=== PATIENT | male | born 1950 | race Caucasian/White ===

== ENCOUNTER 2018-06-10 22:33 | Emergency (ER) | payer MEDICARE, BC ==
--- NOTE | 2018-06-10 22:50 | EDM.PDOC ---
ED HPI GENERAL MEDICAL PROBLEM - General Chief Complaint: Lower Extremity Injury/Pain Stated Complaint: PAIN Time Seen by Provider: 06/10/18 22:40 Source of Information: Reports: Patient, Family History Limitations: Reports: No Limitations - History of Present Illness INITIAL COMMENTS - FREE TEXT/NARRATIVE: Harjeet comes into [facility] ED with inability to empty the bladder since this afternoon. He underwent lithotripsy for a L ureteral stone 4 days ago at [facility], and seemed to be doing well until today. He noticed voiding appeared to be in progressively smaller amounts, without burning, hematuria, or back pain. He called the nurse this evening who suggested a visit to the ED. Upon arrival, VSS, and a bladder scan noted 56 ml of urine. - Related Data Allergies Allergy/AdvReac Type Severity Reaction Status Date / Time No Known Allergies Allergy Verified 06/10/18 22:58 Home Meds: Home Meds Aspirin [Halfprin] 81 mg PO DAILY 11/11/16 [History] Metoprolol Succinate [Toprol XL] 12.5 mg PO DAILY 11/11/16 [History] Nitroglycerin [Nitrostat] 0.4 mg SL ASDIRECTED PRN 11/11/16 [History] atorvaSTATin [Lipitor] 40 mg PO BEDTIME 11/11/16 [History] Ketorolac [Toradol] 10 mg PO Q6H PRN 06/10/18 [History] Nitroglycerin 0.4 mg SL ASDIRECTED 06/10/18 [History] Tamsulosin HCl [Flomax] 0.4 mg PO DAILY 06/10/18 [History] valACYclovir [Valtrex] 1,000 mg PO DAILY PRN 06/10/18 [History] Past Medical History HEENT History: Reports: Impaired Vision Other HEENT History: posterior vitreous detaCHMENT Cardiovascular History: Reports: CAD, High Cholesterol, Hypertension, AL, Stents Respiratory History: Reports: Bronchitis, Recurrent, Pneumonia, Recurrent, SOB Musculoskeletal History: Reports: Amputation Oncologic (Cancer) History: Reports: Basal Cell Carcinoma Dermatologic History: Reports: Other (See Below) Other Dermatologic History: KERATOSIS - Infectious Disease History Infectious Disease History: Reports: Chicken Pox, Measles, Mumps, Shingles - Past Surgical History HEENT Surgical History: Reports: Oral Surgery Cardiovascular Surgical History: Reports: Coronary Artery Stent Social & Family History - Caffeine Use Caffeine Use: Reports: Coffee Other Caffeine Use: 2 CUPS COFFEE EACH DAY Review of Systems - Review of Systems Review Of Systems: ROS reveals no pertinent complaints other than HPI. ED EXAM, GENERAL - Physical Exam Exam: See Below Exam Limited By: No Limitations General Appearance: Alert, WD/WN, No Apparent Distress, Anxious Head: Normocephalic Neck: Normal Inspection, Supple Respiratory/Chest: Lungs Clear, Normal Breath Sounds Cardiovascular: Regular Rate, Rhythm, No Murmur GI/Abdominal: Normal Bowel Sounds, Soft, Non-Tender, No Organomegaly, No Distention, No Mass (Male) Exam: No Hernia, Normal Inspection Rectal (Males) Exam: Deferred Back Exam: Normal Inspection Extremities: Normal Inspection Neurological: Alert, Oriented, CN II-XII Intact, Normal Cognition, Normal Gait, No Motor/Sensory Deficits Psychiatric: Normal Affect, Anxious Skin Exam: Warm, Dry Lymphatic: No Adenopathy Course - Vital Signs Text/Narrative:: A screening UA was satisfactory. No meds were dispensed. - Orders/Labs/Meds Orders: Active Orders 24 hr Category Date Time Status URINALYSIS W/MICROSCOPIC [UA W/MICROSCOPIC] [URIN] Stat Lab 06/10/18 23:04 Ordered Labs: Laboratory Tests 06/10/18 Range/Units 23:04 Urine Color Yellow (YELLOW) Urine Appearance Slightly cloudy (CLEAR) Urine pH 0.0 L (5.0-6.5) Ur Specific [place] 1.025 (1.010-1.025) Urine Protein Negative (NEGATIVE) mg/dL Urine Glucose (UA) Normal (NEGATIVE) mg/dL Urine Ketones Negative (NEGATIVE) mg/dL Urine Occult Blood Large H (NEGATIVE) Urine Nitrite Negative (NEGATIVE) Urine Bilirubin Negative (NEGATIVE) Urine Urobilinogen Normal (NEGATIVE) mg/dL Ur Leukocyte Esterase Negative (NEGATIVE) Urine RBC 75-100 H (0) Urine WBC 0-5 (0) Ur Squamous Epith Cells Occasional (NS,R,O) Urine Bacteria Few H (NS) Urine Yeast Few H (NS) Departure - Departure Time of Disposition: 23:33 Disposition: Home, Self-Care 01 Condition: Good, Poor Clinical Impression: Voiding difficulty - Discharge Information *PRESCRIPTION DRUG MONITORING PROGRAM REVIEWED*: Not Applicable *COPY OF PRESCRIPTION DRUG MONITORING REPORT IN PATIENT ZECHARIAH: Not Applicable Instructions: Lithotripsy, Care After Referrals: Deon Lebron MD [Primary Care Provider] - Forms: ED Department Discharge Additional Instructions: Follow up with your urology as needed. May call for questions or come back if symptoms get acutely worse. - Problem List & Annotations (1) Voiding difficulty SNOMED Code(s): 091576363 Code(s): R39.198 - OTHER DIFFICULTIES WITH MICTURITION Status: Acute Current Visit: Yes Annotation/Comment:: Reassurance given, suggested hydration. - Problem List Review Problem List Initiated/Reviewed/Updated: Yes - My Orders Last 24 Hours: My Active Orders 06/10/18 23:04 URINALYSIS W/MICROSCOPIC [UA W/MICROSCOPIC] [URIN] Stat - Assessment/Plan Last 24 Hours: My Active Orders 06/10/18 23:04 URINALYSIS W/MICROSCOPIC [UA W/MICROSCOPIC] [URIN] Stat Plan: Follow up with Urology if needed.
[2018-06-11 00:48] VITALS: BP 173/97
== END 2018-06-10 23:42 | disposition home or self-care (01) ==
LOC: FB.ED 22:33
DX: R39.198 Other difficulties with micturition (principal); I10 Essential (primary) hypertension; Z79.82 Long term (current) use of aspirin; Z79.899 Other long term (current) drug therapy
CPT/HCPCS: 51798; 81001; 99283

== ENCOUNTER 2022-09-15 06:08 | Day surgery (SDC) | payer MEDICARE, BC ==
[2022-09-15] MEDS ORDERED: Sodium Chloride 0.9% 10 ML Syringe FLUSH PRN (06:15)
[2022-09-15] MEDS ORDERED: Lactated Ringers 1,000 ML IV SCH (06:15)
[2022-09-15 09:00] VITALS: BP 155/92; PULSE 61
[2022-09-15] MEDS ORDERED: Propofol 200 MG/20 ML SDV IVPUSH ONE (13:00)
== END 2022-09-15 08:46 | disposition home or self-care (01) ==
LOC: FB.SDS 06:08
PROVIDERS: ATTEND Surgery
DX: Z12.11 Encounter for screening for malignant neoplasm of colon (principal); K63.5 Polyp of colon; K57.30 Diverticulosis of large intestine without perforation or abscess without bleeding; I25.2 Old myocardial infarction; I25.10 Atherosclerotic heart disease of native coronary artery without angina pectoris; E78.5 Hyperlipidemia, unspecified; Z98.890 Other specified postprocedural states; Z86.010 Personal history of colon polyps; Z79.899 Other long term (current) drug therapy
CPT/HCPCS: 00811-QZ; 88305; J2704; J7120

== ENCOUNTER 2025-07-10 23:05 | Emergency (ER) | payer MEDICARE, BC ==
[2025-07-10 23:19] VITALS: PULSE 66
[2025-07-11 00:06] LABS: BASOPHILS ABSOLUTE AUTO 0.0 x10-3/uL (0.0-0.3); BASOPHILS PERCENT AUTO 0.8 % (0.3-3.8); EOSINOPHILS ABSOLUTE AUTO 0.1 x10-3/uL (0.0-0.6); EOSINOPHILS PERCENT AUTO 1.9 % (0.1-6.8); LYMPHOCYTES ABSOLUTE AUTO 1.9 x10-3/uL (0.5-4.5); LYMPHOCYTES PERCENT AUTO 32.6 % (15.8-45.3); MEAN PLATELET VOLUME 6.2 fL (6.7-11.0); MONOCYTES ABSOLUTE AUTO 0.6 x10-3/uL (0.0-1.2); MONOCYTES PERCENT AUTO 10.9 % (5.5-15.2); NEUTROPHILS ABSOLUTE AUTO 3.2 x10-3/uL (1.7-6.9); NEUTROPHILS PERCENT AUTO 53.8 % (40.3-71.8); PLATELET COUNT,PLT 152 x10(3)uL (117-477); RED BLOOD CELL COUNT 5.10 x10(6)uL (3.90-5.90); RED CELL DISTRIBUTION WIDTH 13.2 % (12.4-15.0); WHITE BLOOD CELL COUNT,WBC 5.9 x10-3/uL (3.2-10.1)
[2025-07-11 00:10] LABS: BLOOD UREA NITROGEN,BUN 18 mg/dL (7-18); CARBON DIOXIDE,CO2 30 mmol/L (21-32); CHLORIDE,CL 109 mmol/L (100-110); CREATININE 0.9 mg/dL (0.70-1.30); EST CRCL DRUG DOSING (CG) 70.92 mL/min; ESTIMATED GFR 89 mL/min (>60); GLUCOSE RANDOM 120 mg/dL (80-116); POTASSIUM,K 3.9 mmol/L (3.5-5.3); SODIUM,NA 144 mmol/L (135-145)
[2025-07-11 00:14] VITALS: BP 193/100
[2025-07-11 00:16] LABS: A/G RATIO 1.1; ALANINE AMINOTRANSFERASE,ALT 24 U/L (12-36); ASPARTATE AMNIOTRANSFERASE,AST 21 IU/L (5-25); BILIRUBIN TOTAL 0.6 mg/dL (0.1-1.3); PROTEIN TOTAL,TP 6.8 g/dL (6.0-8.0)
[2025-07-11 00:25] LABS: GLUCOSE,URINE NORMAL (NORMAL); OCCULT BLOOD,URINE NEGATIVE (NEGATIVE)
[2025-07-11 00:27] LABS: APPEARANCE,URINE CLEAR (CLEAR)
== END 2025-07-11 01:52 | disposition home or self-care (01) ==
LOC: FB.ED 23:05
DX: I10 Essential (primary) hypertension (principal); I25.10 Atherosclerotic heart disease of native coronary artery without angina pectoris; E78.00 Pure hypercholesterolemia, unspecified; I25.2 Old myocardial infarction; Z79.82 Long term (current) use of aspirin; Z79.899 Other long term (current) drug therapy
CPT/HCPCS: 36415; 80053; 81003; 83735; 85025; 93005; 99283; A9270; 93010; 99284